=== PATIENT | female | born 1990 | race Caucasian/White ===

== ENCOUNTER 2020-10-26 19:41 | Emergency (ER) | payer MEDICAID ==
[~2020-10-26] VITALS: Ht 154.9 cm; Wt 56.2 kg
--- NOTE | 2020-10-26 20:30 | NUR ---
TO BED 5, A/OX4, C/O COUGH, SOB, LIGHT HEADEDNESS, RECENT COVID VACCINE 1ST DOSE.
[2020-10-26 21:10] VITALS: BP 114/65
--- NOTE | 2020-10-26 21:11 | NUR ---
Patient discharged to home in stable condition. Written and verbal after care instructions given. Patient verbalizes understanding of instruction. Patient ambulatory with a steady gait out of ED.
== END 2020-10-26 21:11 | disposition home or self-care (01) ==
LOC: ER 19:54
DX: F41.9 Anxiety disorder, unspecified (principal); Z86.16 Personal history of COVID-19; Z88.2 Allergy status to sulfonamides
CPT/HCPCS: 82962-TC